=== PATIENT | male | born 1955 | race Caucasian/White ===

== ENCOUNTER → 2017-11-12 | Outpatient (CLI) | payer MEDICARE, BC ==
[~2017-11-12] MED LIST: ASPI81TA94 PO; BLOO-1511 MC; CAR6.25 PO; CLOP75TA PO; HYDR25TA66 PO; INSU100I30 SQ; INSU200I SUBQ; ISOS20TA PO; LISI-362 PO; SIMV-49 PO
[2017-11-12 17:13] LABS: PLATELET COUNT, AUTOMATED 143 K/uL (150-450)
== END ==
LOC: LAB 16:53
PROVIDERS: ATTEND Emergency Medicine
DX: Z12.5 Encounter for screening for malignant neoplasm of prostate (principal); E11.9 Type 2 diabetes mellitus without complications
CPT/HCPCS: 36415; 83036; 85025; G0103; 82040; 82247; 82310; 82374; 82435; 82465; 82565; 82947; 83718; 84075; 84132; 84153; 84155; 84295; 84450; 84460; 84478; 84520

== ENCOUNTER → 2017-12-30 | Outpatient (CLI) | payer MEDICARE, BC ==
[~2017-12-30] MED LIST changes: +BLOO1STR16 MC
== END ==
LOC: LAB 14:37
PROVIDERS: ATTEND Emergency Medicine
DX: I10 Essential (primary) hypertension (principal); R79.89 Other specified abnormal findings of blood chemistry; R74.8 Abnormal levels of other serum enzymes
CPT/HCPCS: 36415; 81001; 82040; 82247; 82310; 82374; 82435; 82565; 82947; 82977; 84075; 84132; 84155; 84295; 84450; 84460; 84520

== ENCOUNTER → 2017-12-30 | Outpatient (REF) | payer MEDICARE, BC | LOC: ZZSENDIN 13:27 | PROVIDERS: ATTEND Emergency Medicine | DX: Z12.11 Encounter for screening for malignant neoplasm of colon (principal) | CPT/HCPCS: 82274 ==

== ENCOUNTER → 2018-03-25 | Outpatient (CLI) | payer MEDICARE, BC ==
--- NOTE | 2018-03-25 12:14 | RADIOLOGY IMAGING REPORT ---
FACILITY: [facility] [place] PATIENT NAME: Phillip Wilson : 1955 MR: [id number] V: [id number] EXAM DATE: ORDERING PHYSICIAN: DANIEL POON TECHNOLOGIST: Location: [facility] Patient: Phillip Wilson : 1955 Visit/Account:[id number] Date of Sevice: 03/25/2018 EXAMINATION: Abdominal ultrasound complete HISTORY: Elevated alkaline phosphatase COMPARISON: None. FINDINGS: Gallbladder: There is a 1.5 mm nonshadowing nonmobile echogenic focus along the posterior wall the ga llbladder may represent a small polyp Liver: Negative. Common duct: Normal measuring three mm. Pancreas: Negative. Spleen: Normal in size and echogenicity measuring 8.7 cm in length. Kidneys: There Is a slightly lobular contour to both kidneys, the right measures 9.4 cm in length, an d the left 9.6 cm. No hydronephrosis. Upper abdominal aorta and IVC: Negative. Ascites: None. IMPRESSION: There Is a slightly lobular contour to both kidneys which could represent lobulation There is a 1.5 cm nonshadowing nonmobile echogenic focus along the posterior wall the gallbladder whi ch may represent a polyp Report Dictated By: Mony Maya MD at 03/25/2018 11:43 AM Report E-Signed By: Mony Maya MD at 03/25/2018 12:10 PM WSN:[id number]
== END ==
LOC: US 00:50
PROVIDERS: ATTEND Emergency Medicine
DX: R93.5 Abnormal findings on diagnostic imaging of other abdominal regions, including retroperitoneum (principal)
CPT/HCPCS: 76700

== ENCOUNTER → 2018-04-15 | Outpatient (CLI) | payer MEDICARE, BC ==
[~2018-04-15] MED LIST changes: +ASCO-182 PO; +CHOL400C10 PO; +GLUC100026 PO; +LISI5TAB25 PO; +VIT-7 PO; +VITA15DR PO; +VITA1CAP46 PO
[2018-04-15 11:32] LABS: PLATELET COUNT, AUTOMATED 165 K/uL (150-450)
--- NOTE | 2018-04-18 09:59 | EKG ---
FACILITY: [facility] [place] PATIENT NAME: MICHELLE CALDERA : [id number] MR: [id number] V: [id number] EXAM DATE: ORDERING PHYSICIAN: HARPREET FAN TECHNOLOGIST: RAYMUNDO Silvestre Reason : PRE OP CLEARANCE Blood Pressure : / mmHG Vent. Rate : 056 BPM Atrial Rate : 056 BPM P-R Int : 162 ms QRS Dur : 090 ms QT Int : 426 ms P-R-T Axes : 063 -44 116 degrees QTc Int : 411 ms * Pediatric ECG analysis * Sinus bradycardia with occasional premature ventricular complexes Left axis deviation T wave inversion in Lateral leads No previous ECGs available Referred By: Confirmed By:
== END ==
LOC: LAB 10:54
PROVIDERS: ATTEND Emergency Medicine
DX: E10.65 Type 1 diabetes mellitus with hyperglycemia (principal); I25.10 Atherosclerotic heart disease of native coronary artery without angina pectoris; I10 Essential (primary) hypertension
CPT/HCPCS: 36415; 82310; 82374; 82435; 82565; 82947; 83036; 84132; 84295; 84520; 85025

== ENCOUNTER 2018-08-11 03:04 | Observation (INO) | payer MEDICARE, BC ==
[2018-08-09 13:14] LABS: PLATELET COUNT, AUTOMATED 164 K/uL (150-450)
[2018-08-11] VITALS (15 sets, daily range): BP systolic 120–184; BP diastolic 58–94
[~2018-08-11] VITALS: Ht 170.2 cm; Wt 59.9 kg
[~2018-08-11 03:04] MED LIST changes: +ACETAMINOPHEN 500 MG TAB PO ONE; +AMPICILLIN/SULBACT (*) 3 GM VL 3 GM in NS(*) 0.9% 100 ML BAG 100 ML IVPB ONE; +INSU100I28 SQ; +PREGABALIN 150 MG CAPSULE PO ONE
[2018-08-11] MEDS ORDERED: LIDOCAINE MPF 1% 5 ML VIAL ONE ×2 (08:36→09:46)
[2018-08-11] MEDS ORDERED: FAMOTIDINE 20 MG TAB PO ONE (09:10)
[2018-08-11] MEDS ORDERED: NORMOSOL R SOLN(*) 1000 ML BAG 1,000 ML IV PRN (09:10)
[2018-08-11] MEDS ORDERED: LIDOCAINE/SOD BICARB 8.4% SYR ID ONE (09:10)
[2018-08-11] MEDS ORDERED: MIDAZOLAM 2 MG/2 ML VIAL IVP PRN (09:10)
[2018-08-11] MEDS ORDERED: INDOCYANINE GREEN 25 MG VIAL IVP ONE (09:45)
[2018-08-11] MEDS ORDERED: PREGABALIN 150 MG CAPSULE PO ONE (09:45)
[2018-08-11] MEDS ORDERED: ACETAMINOPHEN 500 MG TAB PO ONE (09:45)
[2018-08-11] MEDS ORDERED: AMPICILLIN/SULBACT (*) 3 GM VL 3 GM in NS(*) 0.9% 100 ML BAG 100 ML IVPB ONE (09:45)
[2018-08-11] MEDS ORDERED: fentaNYL CITR 100 MCG/2 ML AMP ONE ×2 (09:45→12:23)
[2018-08-11] MEDS ORDERED: PROPOFOL EMUL(*) 10MG/ML 20 ML 20 ML ONE (09:46)
[2018-08-11] MEDS ORDERED: DEXAMETHASONE SOD 4 MG/ML VIAL ONE (09:46)
[2018-08-11] MEDS ORDERED: ONDANSETRON 4 MG/2 ML VIAL ONE ×2 (09:46→16:49)
[2018-08-11] MEDS: NS(*) 0.9% 1000 ML BAG 1,000 ML IV PRN ×2 (09:54→09:56)
[2018-08-11] MEDS ORDERED: NS(*) 0.9% 500 ML BAG 500 ML ONE (10:07)
[2018-08-11] MEDS ORDERED: ROPIVACAINE 0.5% 20 ML VIAL ONE (10:16)
[2018-08-11] MEDS ORDERED: SUGAMMADEX SOD 200 MG/2 ML SDV ONE (10:30)
[2018-08-11] MEDS ORDERED: KETAMINE HCL 200 MG/20 ML MDV ONE (11:03)
[2018-08-11] MEDS ORDERED: OXYC-854 PO (12:22)
[2018-08-11] MEDS ORDERED: DOCU-416 PO (12:22)
--- NOTE | 2018-08-11 12:25 | Short(Outpt) Discharge Summary ---
Discharge Summary Reason for Hosp/Final Diag: (1) Gallbladder polyp Status: Chronic Hospital Course & Plan: Robotic ashly completed without problems. Departure Discharge to: Home, Self Care Discharge Instructions Home Meds Active Scripts Docusate Sodium (COLACE) 100 Mg Capsule, 1 CAP PO BID, #30 CAP 0 Refills TAKE WITH A FULL GLASS OF WATER Prov:HARPREET FAN MD 08/11/18 Oxycodone Hcl/Acet 5/325 Mg (ENDOCET 5-325 TABLET) 1 Each Tablet, 1 TAB PO Q4H PRN for PAIN, #20 TAB 0 Refills Prov:HARPREET FAN MD 08/11/18 Blood Sugar Diagnostic (FREESTYLE LITE TEST STRIPS) 1 Each Strip, 10 EACH MC DAILY, #300 STRIP 11 Refills Prov:DANIEL POON MD 07/13/18 Insulin Lispro 100 Un/Ml Pen (HUMALOG 3 ML PEN) 100 Unit/1 Ml Insuln.pen, 30 UNIT SQ DAILY, #1 BOX 6 Refills Prov:DANIEL POON MD 05/30/18 Simvastatin (SIMVASTATIN) 20 Mg Tablet, 20 MG PO DAILY, #90 TAB 3 Refills Prov:DANIEL POON MD 11/12/17 Reported Medications Insulin Glargine 100 Un/Ml Pen (LANTUS SOLOSTAR PEN) 100 Unit/1 Ml Insuln.pen, 8 UNIT SQ BID, ML 04/20/18 Lisinopril (LISINOPRIL) 5 Mg Tablet, 5 MG PO QDAY, TAB 04/19/18 Hydralazine Hcl (HYDRALAZINE HCL) 25 Mg Tablet, 25 MG PO BID, TAB 11/12/17 Carvedilol (CARVEDILOL) 6.25 Mg Tab, 6.25 MG PO BID, TAB 11/12/17 Clopidogrel Bisulfate (CLOPIDOGREL) 75 Mg Tablet, 1 TAB PO DAILY, TAB 11/12/17 Aspirin (ASPIRIN) 81 Mg Tab.chew, 81 MG PO DAILY, TAB.CHEW 11/12/17 Isosorbide Dinitrate (ISOSORBIDE DINITRATE) 20 Mg Tablet, 1 TAB PO BID 11/12/17 Follow up Referrals: General Surgery - 08/31/18 @ Surgery, General with HARPREET FAN MD You have a follow up appointment scheduled with Dr. Fan on 08/31/18, at 4:45pm. Diet: Regular Activity: As Tolerated Special Instructions: You may remove the white surgical dressings on 08/13/18, then you can shower. After showering, leave the incisions open to air but leave the steristrips in place until they fall off on their own. Do not immerse the incisions for 2 weeks. HARPREET FAN MD Aug 11, 2018 12:25
--- NOTE | 2018-08-11 12:31 | Post Operative Progress Note ---
Post Operative Progress Note Date: Aug 11, 2018 Time: 12:25 Surgeon: Erika Dictation number: [id number] Anesthesia: GETA by Dr. Barksdale Pre-Op Diagnosis: Gallbladder polyp Post-Op Diagnosis: DELLA Findings: C/W dx Procedure(s): Robotic cholecystectomy Specimen Removed:(May be N/A): GB and contents Complications: None Fluids: See anesthesia record Estimated Blood Loss: Minimal Date OP Note Dictated: Aug 11, 2018 Time OP Note Dictated: 12:26 HARPREET FAN MD Aug 11, 2018 12:30
--- NOTE | 2018-08-11 13:17 | OPERATIVE REPORT 1 ---
EVENT DATE: August 11, 2018 SURGEON: Royce James M.D. ANESTHESIOLOGIST: Deuce Barksdale MD ANESTHESIA: General endotracheal. POULTRY BARN MANAGER: [*] PREOPERATIVE DIAGNOSIS Large gallbladder polyp. POSTOPERATIVE DIAGNOSIS Large gallbladder polyp. PROCEDURE PERFORMED Robotic cholecystectomy. COMPLICATIONS None. CONDITION Stable. ESTIMATED BLOOD LOSS Minimal. INDICATIONS This is a 62-year-old gentleman who was referred to me after an ultrasound revealed a 1.5 cm nonmobile focus in the posterior wall of the gallbladder which looked to be a polyp. In accordance with recommendations of removing the gallbladder for polyps greater than a centimeter, I recommended this and the patient ultimately agreed and consented to proceed with a robotic cholecystectomy. PROCEDURE The patient was brought into the operating room and placed supine on the operating table. General endotracheal anesthesia was administered and his abdomen was prepped and draped in the sterile fashion. A time-out was completed. I injected the infraumbilical skin with 0.5% ropivacaine plain and made a curvilinear smiley face type incision in the infraumbilical rim. I dissected to the dermis and the subcutaneous fat, identified the midline fascia, made a vertical incision in the midline fascia and grasped the fascia with Williams clamps and retracted the fascia towards the ceiling and away from the underlying viscera. I entered the peritoneal cavity bluntly with my finger and placed 2-0 interrupted Vicryl sutures transversely through the vertical fascial defect and inserted a 12 mm Elias robotic port through this wound and secured into place with sutures. I then insufflated the abdomen to a pressure of 15 mmHg and inserted the robotic 30-degree camera through this port and under direct visualization placed an 8 mm robotic port in the right mid abdomen and two 8 mm robotic ports in the left abdomen and one in the anterior axillary line subcostal space and the other one in the axillary line and left mid abdomen. Next, I placed in reverse Trendelenburg and planed towards his left and removed the viscera from the right upper quadrant and then the robot was docked and targeted and instruments inserted. I scrubbed out and went to the console. I grasped the fundus of the gallbladder and retracted towards the patient's right shoulder and then retracted the infundibulum towards the patient's right hip. I then divided the peritoneum overlying the infundibulum in both the medial and lateral aspects of the gallbladder and then clearly identified the cystic duct and arteries, which were cleaned off circumferentially and their closed node was also identified and I dissected in such a manner that it came out with the specimen. The artery was anterior to the duct so I clipped it first and divided it so I could continue dissecting around the duct and I used FireFly to clearly identify the cystic duct as well as the common bile duct and stayed well away from the common bile duct. I then clipped the cystic duct with three clips distally and one clip proximally and divided it between the upper most clips towards the gallbladder. I then divided the posterior capsule of the gallbladder with hook electrocautery and then when the gallbladder was completely freed up it was placed in a surgical specimen retrieval bag and removed from the abdomen through the umbilical port site. I then irrigated and dried the right upper quadrant and inspected the gallbladder fossa as well as cystic duct and artery stumps for any bleeding or bile leak and there was none. I removed all the irrigation fluid from the right upper quadrant. I then removed all of the instruments, undocked the robot, desufflated the abdomen and then removed all the ports. I then closed the midline fascia with another [id number] 0 Vicryl suture and tied all three of these down with good reapproximation of the fascial edges. The skin at each port site was closed with 4-0 Monocryl subcuticular suture. The skin was cleaned, dried and Steri-strips applied, followed by sterile surgical dressings. The patient was awakened and extubated in the operating room and transferred to the recovery room in stable condition, having tolerated the procedure without any apparent problems. ALEX
[2018-08-11] MEDS ORDERED: FLUSH 10 ML SYR IVP PRN (17:50)
[2018-08-11] MEDS ORDERED: INSULIN HUM LISPRO 100 UN/ML 3 ML VIAL SUBQ PRN (17:50)
[2018-08-11] MEDS ORDERED: ONDANSETRON 4 MG/2 ML VIAL IVP PRN (17:50)
--- NOTE | 2018-08-11 17:53 | Miscellaneous Provider Note ---
Miscellaneous Provider Note Note Pt doing well after surgery but with some hypoxia requiring supplemental oxygen and he feels "a little" unsteady with ambulation. He planned on staying in a hotel tonight here in [place] but he would be staying by himself. I spoke with him about admitting him for observation overnight to allow the anesthesia more time to wear off and he is agreeable with this. HARPREET FAN MD Aug 11, 2018 17:53
[2018-08-11] MEDS: INSULIN GLARGINE 100 U/ML 3 ML PEN SUBQ SCH (21:00)
[2018-08-11] MEDS: hydrALAZINE HCL 25 MG TAB PO SCH (21:18)
[2018-08-11] MEDS: ISOSORBIDE DINITRATE 20 MG TAB PO SCH (21:18)
[2018-08-11] MEDS: CARVEDILOL 6.25 MG TAB PO SCH (21:18)
[2018-08-11] MEDS: FAMOTIDINE 20 MG TAB PO SCH (21:18)
[2018-08-11] MEDS: DOCUSATE SODIUM 100 MG CAP PO SCH (21:20)
[2018-08-11] MEDS: ACETAMINOPHEN 325 MG TAB PO PRN (21:20)
[2018-08-12 04:20] VITALS: BP 133/60
[2018-08-12] MEDS: ACETAMINOPHEN 325 MG TAB PO PRN (04:21)
[2018-08-12 07:55] VITALS: BP 143/78
[2018-08-12] MEDS: hydrALAZINE HCL 25 MG TAB PO SCH (08:16)
[2018-08-12] MEDS: FAMOTIDINE 20 MG TAB PO SCH (08:16)
[2018-08-12] MEDS: DOCUSATE SODIUM 100 MG CAP PO SCH (08:16)
[2018-08-12] MEDS: ISOSORBIDE DINITRATE 20 MG TAB PO SCH (08:17)
[2018-08-12] MEDS: CARVEDILOL 6.25 MG TAB PO SCH (08:17)
[2018-08-12] MEDS: INSULIN GLARGINE 100 U/ML 3 ML PEN SUBQ SCH (08:17)
[2018-08-12] MEDS ORDERED: SIMVASTATIN 20 MG TAB PO SCH (09:00)
[2018-08-12] MEDS ORDERED: [UNRECOGNIZED DRUG - OTHER] SQ SCH (09:00)
[2018-08-12] MEDS ORDERED: LISINOPRIL 5 MG TAB PO SCH (09:00)
[2018-08-12] MEDS ORDERED: ASPIRIN 81 MG ENTERIC COATED PO SCH (09:00)
[2018-08-12] MEDS ORDERED: INSULIN LISPRO SQ SCH (09:00)
== END 2018-08-12 08:06 | disposition home or self-care (01) ==
LOC: OR 03:04 → INTOOBSV 18:20 → MED 18:20
PROVIDERS: ADMIT Surgery; ATTEND Surgery
DX: K81.1 Chronic cholecystitis (principal); R09.02 Hypoxemia; I25.10 Atherosclerotic heart disease of native coronary artery without angina pectoris; I10 Essential (primary) hypertension; E11.9 Type 2 diabetes mellitus without complications; E78.5 Hyperlipidemia, unspecified; Z95.1 Presence of aortocoronary bypass graft; Z79.4 Long term (current) use of insulin
CPT/HCPCS: 36415; 36416; 47562; 82948; 83036; 85025; 88304; 94667; A9270; G0378; J0295; J1100; J1815; J2001; J2250; J2405; J2704; J2795; J3010; J3490; J7030; J7040; J7050; S2900; 82310; 82374; 82435; 82565; 82947; 84132; 84295; 84520; 96372